=== PATIENT | male | born 1980 | race African-American/Black ===

== ENCOUNTER 2022-02-17 10:39 | Emergency (ER) | payer SELFPAY ==
[~2022-02-17] VITALS: Ht 180 cm; Wt 84.0 kg
--- NOTE | 2022-02-17 11:57 | ED General ---
General Chief Complaint: COVID19 Suspect/Confirmed Stated Complaint: BODYACHES/CHILLS/CONGESTION/FEVER/COUGH History of Present Illness Date Seen by Provider: Feb 17, 2022 Time Seen by Provider: 11:40 Initial Comments Patient is a 41-year-old male who presents to the emergency department with acute onset of body aches, headache, and fever upon waking today. He denies any known recent sick contacts. States he has been taking TheraFlu and multisymptom Tylenol cold and flu. He states this has not improved his symptoms. Denies any nausea/vomiting/diarrhea. No chest pain or shortness of air. (MARGUERITE PAIGE APRN) Allergies and Home Medications Allergies Coded Allergies: No Known Drug Allergies (Unverified , 02/17/22) Patient Home Medication List Home Medication List Reviewed: Yes (MARGUERITE PAIGE APRN) Oseltamivir Phosphate (Tamiflu) 75 Mg Cap, 75 MG PO BID Prescribed by: Marguerite Paige on 02/17/22 1158 Review of Systems Review of Systems Constitutional: see HPI, fever, malaise EENTM: no symptoms reported Respiratory: no symptoms reported Cardiovascular: no symptoms reported Gastrointestinal: no symptoms reported Genitourinary: no symptoms reported Musculoskeletal: see HPI, muscle pain Skin: no symptoms reported Psychiatric/Neurological: No Symptoms Reported (MARGUERITE PAIGE APRN) Physical Exam Vital Signs Vital Signs - First Documented 02/17/22 11:04 Temp 36.6 Pulse 93 Resp 20 B/P (MAP) 142/98 (113) Pulse Ox 98 O2 Delivery Room Air (KATERYNA RAI MD) Vital Signs Capillary Refill : (MARGUERITE PAIGE APRN) Height, Weight, BMI Height: '" Weight: lbs. oz. kg; BMI Method: General Appearance: No Apparent Distress, WD/WN HEENT: PERRL/EOMI, TMs Normal, Normal ENT Inspection, Pharynx Normal Neck: Normal Inspection, Non Tender Respiratory: Chest Non Tender, Lungs Clear, Normal Breath Sounds, No Accessory Muscle Use Cardiovascular: Regular Rate, Rhythm Gastrointestinal: Non Tender, Soft Back: Normal Inspection, No Vertebral Tenderness Neurologic/Psychiatric: Alert, Oriented x3, No Motor/Sensory Deficits, Normal Mood/Affect Skin: Normal Color, Warm/Dry (MARGUERITE PAIGE APRN) Progress/Results/Core Measures Suspected Sepsis SIRS Temperature: Pulse: Respiratory Rate: Blood Pressure / Mean: (MARGUERITE PAIGE APRN) Results/Orders Lab Results Laboratory Tests Test 02/17/22 11:09 Range/Units Influenza Type A (RT-PCR) Detected H Not Detecte Influenza Type B (RT-PCR) Not Detected Not Detecte SARS-CoV-2 RNA (RT-PCR) Not Detected Not Detecte (KATERYNA RAI MD) My Orders Orders - KATERYNA RAI MD Covid 19 Inhouse Test (02/17/22 10:47) Influenza A And B By Pcr (02/17/22 10:47) (KATERYNA RAI MD) Vital Signs/I&O 02/17/22 02/17/22 11:04 12:20 Temp 36.6 37.2 Pulse 93 89 Resp 20 20 B/P (MAP) 142/98 (113) 133/92 Pulse Ox 98 97 O2 Delivery Room Air Room Air (KATERYNA RAI MD) Vital Signs/I&O Capillary Refill : (MARGUERITE PAIGE APRN) Progress Note : Progress Note Patient is nontoxic and well-hydrated on exam. No adventitious lung sounds or increased work of breathing noted. No nuchal rigidity noted. Vital signs are reassuring. Symptoms consistent with influenza. Influenza A positive on flu test. Will give Tamiflu prescription given patient is early in course of illness. Follow-up with PCP. Return precautions for urgent symptomology discussed. Patient verbalized understanding. (MARGUERITE PAIGE APRN) Departure Impression Primary Impression: Influenza A Disposition: 01 HOME, SELF-CARE Condition: Stable Departure-Patient Inst. Decision time for Depature: 11:55 (MARGUERITE PAIGE APRN) Referrals: NO,LOCAL PHYSICIAN (PCP/Family) Primary Care Physician Patient Instructions: Flu, Adult (DC) Scripts Oseltamivir Phosphate (Tamiflu) 75 Mg Cap 75 MG PO BID for 5 Days, #10 CAP 0 Refills Prov: MARGUERITE PAIGE APRN 02/17/22 ATTENDING PHYSICIAN NOTE: I was physically present as attending physician in the emergency department during the care of this patient, but I was not directly involved in the decision making or delivery of care for this patient. (KATERYNA RAI MD) MARGUERITE PAIGE APRN Feb 17, 2022 11:57 KATERYNA RAI MD Feb 17, 2022 20:35
[2022-02-17] MEDS ORDERED: OSLT75C PO (11:58)
[2022-02-17] MEDS ORDERED: IBUPROFEN 600 MG (MOTRIN) TAB PO ONE (12:15)
[2022-02-17 12:20] VITALS: BP 133/92
== END 2022-02-17 12:20 | disposition home or self-care (01) ==
LOC: ER 10:43
DX: J10.1 Influenza due to other identified influenza virus with other respiratory manifestations (principal); Z20.822 Contact with and (suspected) exposure to COVID-19
CPT/HCPCS: 87636; 99283

== ENCOUNTER 2022-06-27 11:58 | Emergency (ER) | payer OTHER ==
[~2022-06-27] VITALS: Ht 180 cm; Wt 81.0 kg
[~2022-06-27 11:58] MED LIST: OSLT75C PO
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
[2022-06-27] MEDS ORDERED: HYDROcodone/APAP 5 MG/325 MG (LORTAB) TAB PO ONE (12:45)
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
[2022-06-27] MEDS ORDERED: ACHD5005 PO (13:13)
[2022-06-27] MEDS ORDERED: CYCL10TA25 PO (13:13)
[2022-06-27] MEDS ORDERED: IBUP-1773 PO (13:14)
[2022-06-27 13:25] VITALS: BP 160/95
== END 2022-06-27 13:26 | disposition home or self-care (01) ==
LOC: EDUNIT# 11:58 → ER 12:02
DX: M25.512 Pain in left shoulder (principal); M25.412 Effusion, left shoulder; F17.200 Nicotine dependence, unspecified, uncomplicated; V49.40XA Driver injured in collision with unspecified motor vehicles in traffic accident, initial encounter; Y92.410 Unspecified street and highway as the place of occurrence of the external cause
CPT/HCPCS: 73030